=== PATIENT | female | born 1985 ===

== ENCOUNTER 2022-03-23 15:40 | Outpatient (CLI) | payer OTHER ==
[2022-03-23] MEDS ORDERED: HUMULIN N100 UNIT/2 SUBCUTANEO (16:37)
[2022-03-23] MEDS ORDERED: INSULIN SYRING1 EA29 SUBCUTANEO (16:38)
[2022-03-23] MEDS ORDERED: HUMULIN R100 UNIT/1 SUBCUTANEO (16:38)
[2022-03-23] MEDS ORDERED: ALCOHOL PADS1 EACH TOP (16:39)
[2022-03-23] MEDS ORDERED: GLYBURIDE2.5 MG PO (17:26)
== END 2022-03-23 17:29 | disposition home or self-care (01) ==
LOC: PRENATAL 15:40
PROVIDERS: ATTEND Obstetrics & Gynecology Maternal & Fetal Medicine
DX: O36.80X0 Pregnancy with inconclusive fetal viability, not applicable or unspecified (principal); Z36 Encounter for antenatal screening of mother; O09.529 Supervision of elderly multigravida, unspecified trimester; O24.419 Gestational diabetes mellitus in pregnancy, unspecified control